=== PATIENT | male | born 1960 | race Caucasian/White ===

== ENCOUNTER 2022-05-25 11:08 | Emergency (ER) | payer OTHER, SELFPAY ==
--- NOTE | ~2022-05-25 | XR_ITS ---
EXAMINATION: RIGHT FOOT, RIGHT ANKLE AND RIGHT KNEE CLINICAL INFORMATION: Status post fall off a ladder. Pain. COMPARISON: None TECHNIQUE: Right foot 3 views. Right ankle 2 views. Right knee 4 views. FINDINGS: RIGHT FOOT AND ANKLE: There is no visible acute fracture, dislocation or osseous subluxation seen. There is a retrocalcaneal osteophyte. The ankle mortise and subtalar joints are normal. The soft tissues are normal RIGHT KNEE: The tricompartment joint space is maintained normal. There is no visible acute fracture, dislocation. No bony erosive changes seen. No abnormal joint effusion. The soft tissues are normal XR/XR ankle RT min 3V IMPRESSION: Small retrocalcaneal enthesophyte. Otherwise no visible acute fracture or dislocation right ankle and right foot. Unremarkable right knee exam.
--- NOTE | ~2022-05-25 | XR_ITS ---
EXAMINATION: RIGHT FOOT, RIGHT ANKLE AND RIGHT KNEE CLINICAL INFORMATION: Status post fall off a ladder. Pain. COMPARISON: None TECHNIQUE: Right foot 3 views. Right ankle 2 views. Right knee 4 views. FINDINGS: RIGHT FOOT AND ANKLE: There is no visible acute fracture, dislocation or osseous subluxation seen. There is a retrocalcaneal osteophyte. The ankle mortise and subtalar joints are normal. The soft tissues are normal RIGHT KNEE: The tricompartment joint space is maintained normal. There is no visible acute fracture, dislocation. No bony erosive changes seen. No abnormal joint effusion. The soft tissues are normal XR/XR knee RT 4V IMPRESSION: Small retrocalcaneal enthesophyte. Otherwise no visible acute fracture or dislocation right ankle and right foot. Unremarkable right knee exam.
--- NOTE | ~2022-05-25 | XR_ITS ---
EXAMINATION: RIGHT FOOT, RIGHT ANKLE AND RIGHT KNEE CLINICAL INFORMATION: Status post fall off a ladder. Pain. COMPARISON: None TECHNIQUE: Right foot 3 views. Right ankle 2 views. Right knee 4 views. FINDINGS: RIGHT FOOT AND ANKLE: There is no visible acute fracture, dislocation or osseous subluxation seen. There is a retrocalcaneal osteophyte. The ankle mortise and subtalar joints are normal. The soft tissues are normal RIGHT KNEE: The tricompartment joint space is maintained normal. There is no visible acute fracture, dislocation. No bony erosive changes seen. No abnormal joint effusion. The soft tissues are normal XR/XR foot RT min 3V IMPRESSION: Small retrocalcaneal enthesophyte. Otherwise no visible acute fracture or dislocation right ankle and right foot. Unremarkable right knee exam.
[2022-05-25 11:12] VITALS: BP 146/86; PULSE 75; RESP 18; TEMP 36.7; O2SAT 97; BMI 26.0
--- NOTE | 2022-05-25 12:23 | ED_ITS ---
HPI - Fall General Chief Complaint: Fall Stated Complaint: fell off ladder at work Time Seen by Provider: 05/25/22 12:06 Source: patient Mode of arrival: ambulatory Limitations: no limitations History of Present Illness HPI Narrative: 62-year-old male presenting to the ED with complaints of right knee/ankle/foot pain after he had a mechanical fall off of his ladder that was approximately 6 ft off the ground prior to arrival. He reports that the ladder started to flu lips and buckle on itself therefore he was able to jump off of it although he injured his right knee/ankle/foot somehow when he fell/jumped. He denies head injury or loss of consciousness, neck injury, back injury, any other extremity injury, paresthesias or any other symptoms complaints concerns or injuries at this time. 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) Fall from: other (from a ladder approximately 6 ft from the ground) Fall witnessed: no Place fall occurred: street Loss of consciousness: none Prolonged down time: no Symptoms prior to fall: none Context: tripped/slipped Location of injury - extremities: right: knee, ankle and foot Severity: mild Quality: aching Associated symptoms (after fall): denies Related Data Previous Rx's Medication Instructions Recorded cyclobenzaprine 10 mg tablet 10 mg PO Q8H PRN Muscle spasm #14 05/25/22 tabs ibuprofen 800 mg tablet 800 mg PO Q8H PRN pain #14 tabs 05/25/22 Allergies Allergy/AdvReac Type Severity Reaction Status Date / Time No Known Allergies Allergy Verified 05/25/22 11:11 Review of Systems Review of Systems: Constitutional : No Fever, No Chills ENT/Mouth : No Ear Pain, No Hoarseness, No sore throat Eyes: No Eye Pain, No Swelling, No Redness, No Foreign Body Cardiovascular : No Chest Pain, No SOB Respiratory : No Cough, No Dyspnea Gastrointestinal : No Nausea, No Vomiting, No Diarrhea, No abdominal Pain Genitourinary : No Dysuria, No Hematuria Musculoskeletal : No neck/back pain or injury, + right knee/ankle/foot pain/injury joint pain, No additional joint pain, No Myalgias, No Joint Swelling Skin : No Skin lacerations, No rash Neuro : No Weakness, No Numbness, No Paresthesias, No Loss of Consciousness, No Dizziness, No Headache Psych : No Anxiety/Panic, No Depression Heme/Lymph: no easy bruising, no Lymphadenopathy Endocrine : No Polyuria, No Polydipsia Yes all other systems are reviewed and are negative [facility] Past Medical History Attestation statement: The following information was validated with the patient. Source: old records reviewed and nursing notes reviewed Social History Social History Advance Directives: No Advance Directives Information Provided: No Physical Exam Vital Signs: Vital Signs: Last Vital Signs Temp 98.0 F 05/25/22 11:12 Pulse 75 05/25/22 11:12 Resp 18 05/25/22 11:12 BP 146/86 H 05/25/22 11:12 Pulse Ox 97 05/25/22 11:12 O2 Del Method 05/25/22 11:12 BMI result Body Mass Index 26.0 vital signs have been reviewed as normal and appeared to be correct. Blood pressure 146/86. Heart rate normal. Respiration rate normal. Temperature normal. Oxygen saturation normal. Appearance: Alert. Oriented X3. No acute distress. Head: Normal external exam. Normocephalic. Atraumatic. Eyes: PERRLA. EOMI. Conjunctiva and sclera normal. Eyelids normal. ENT: Pharynx normal. Uvula midline. Moist mucous membranes. No lesions/ulcerations or masses noted on the tongue. Normal voice. No trismus noted. No drooling noted. No muffled voice noted. Neck: Normal inspection. Neck supple. FROM. No adenopathy. Thyroid Normal. No tracheal deviation noted. No crepitus is noted. No meningeal signs. No neck mass noted. No signs of trauma noted. CVS: Normal heart rate and rhythm. Heart sound normal. Pulses normal throughout. No murmurs/rales/gallops. Respiratory: No respiratory distress. Painless inspiration. Breath sounds normal. No wheezes/rales/rhonchi noted. Chest nontender. No crepitus is noted. No signs of trauma noted. No accessory muscle usage noted or decreased air movement noted. Abdomen: Soft and nontender. Bowel sounds normal in all 4 quadrants. No distention noted. No organomegaly noted. No visible injury noted. Back: No CVA tenderness. Full range of motion noted. Nontender. No signs of trauma. Patient neuro intact bilaterally and distally on all 4 extremities. Patient's reflexes intact bilaterally and distally on all 4 extremities. No rashes/lesion/induration/fluctuance or signs of infection noted. Skin: Skin warm and dry. Normal skin color. Normal skin turgor. No rashes/lesions/lacerations noted. Extremities: Patient mild tenderness palpation to the medial aspect of the right knee although has full range of motion no obvious ligamentous or tendon injury noted. Not consistent muscle rupture. Patient mild tenderness palpation to the anterior/lateral and medial aspect of the right ankle and the proximal aspect of the right foot. No obvious ligamentous or tendon injury noted to the toes/foot/ankle joint. He has full range of motion of all toes on the right side/ankle/foot joint. Achilles tendon is intact. Negative Chinchilla's test. Otherwise all other extremities exhibit normal range of motion and nontender. Neuro: Oriented X 3. No motor deficit. No sensory deficit. Reflexes normal. Normal steady gait. No focal neuro deficits noted. CN's II-XII intact bilaterally? Vascular: + radial pulses/+ 2 distal pedal pulses/+2 dorsalis pedis b/l. Normal cap refill. No cyanosis noted to upper extremity nails and lower extremity toes nails. Course Course Course Narrative: 12:15pm - 62-year-old male presenting to the ED with complaints of right knee/ankle/foot pain after he had a mechanical fall off of his ladder that was approximately 6 ft off the ground prior to arrival. He reports that the ladder started to flu lips and buckle on itself therefore he was able to jump off of it although he injured his right knee/ankle/foot somehow when he fell/jumped. Will obtain an x-ray of the right knee/ankle/foot and re-evaluate. Reevaluation(s) Reevaluation #1: - x-rays negative. Will DC home with symptomatic treatment instructions return if any new or worsening symptoms follow up with primary care provider. Patient understands agrees with this plan. Time: 12:51 MDM - Fall Medical Records Attestation: I reviewed the patient's medical records. Imaging Data Right foot/ankle/knee x-ray: Attestation: I personally reviewed and interpreted this imaging study as follows: Radiologist's impression: FINDINGS: RIGHT FOOT AND ANKLE: There is no visible acute fracture, dislocation or osseous subluxation seen. There is a retrocalcaneal osteophyte. The ankle mortise and subtalar joints are normal. The soft tissues are normal RIGHT KNEE: The tricompartment joint space is maintained normal. There is no visible acute fracture, dislocation. No bony erosive changes seen. No abnormal joint effusion. The soft tissues are normal XR/XR knee RT 4V IMPRESSION: Small retrocalcaneal enthesophyte. Otherwise no visible acute fracture or dislocation right ankle and right foot. ? Unremarkable right knee exam.? Discharge Plan Discharge Clinical Impression: Fall, Sprain of right knee/leg, Right ankle sprain Patient Disposition: Home, Self-Care Instructions: Ankle Sprain (ED) Prescriptions: New ibuprofen 800 mg tablet 800 mg PO Q8H PRN (Reason: pain) Qty: 14 0RF cyclobenzaprine 10 mg tablet 10 mg PO Q8H PRN (Reason: Muscle spasm) Qty: 14 0RF Referrals: Physician,Unknown J [Primary Care Provider] - 5 days (your pcp) Stand Alone Forms: Work/School Release
== END 2022-05-25 13:36 | disposition home or self-care (01) ==
PROVIDERS: Emergency Provider Internal Medicine
DX: S83.91XA Sprain of unspecified site of right knee, initial encounter (principal); S93.401A Sprain of unspecified ligament of right ankle, initial encounter; W11.XXXA Fall on and from ladder, initial encounter; Y93.89 Activity, other specified; Y92.9 Unspecified place or not applicable; Y99.0 Civilian activity done for income or pay
CPT/HCPCS: 73564; 73610; 73630; 99283

== ENCOUNTER → 2022-05-30 12:32 | Outpatient (BNVA) | payer OTHER, SELFPAY | PROVIDERS: Visit Provider Physician Assistant Medical | DX: S93.491A Sprain of other ligament of right ankle, initial encounter (principal); W11.XXXA Fall on and from ladder, initial encounter | CPT/HCPCS: 99202 ==